=== PATIENT | female | born 1935 | race Caucasian/White ===

== ENCOUNTER 2017-04-26 13:44 | Emergency (ER) | payer MEDICARE ==
[~2017-04-26] VITALS: Ht 172.7 cm; Wt 102.7 kg
[2017-04-26] MEDS ORDERED: METF500T4 PO (13:55)
[2017-04-26] MEDS ORDERED: CARI350 PO (13:55)
[2017-04-26] MEDS ORDERED: LEVO25TA4 PO (13:55)
[2017-04-26] MEDS ORDERED: LISI-660 PO (13:55)
[2017-04-26] MEDS ORDERED: ATOR10TA84 PO (13:55)
[2017-04-26 14:02] LABS: GLUCOSE,POINT OF CARE 155 MG/DL (70-110)
[2017-04-26] MEDS ORDERED: ONDANSETRON HCL 4 MG TABLET PO ONE (15:00)
[2017-04-26] MEDS ORDERED: HYDROmorphone 2 MG/ML SYRINGE IM ONE (15:00)
[2017-04-26 15:30] VITALS: BP 135/86
== END 2017-04-26 15:50 | disposition home or self-care (01) ==
LOC: EMS 13:47
DX: M54.41 Lumbago with sciatica, right side (principal); M79.604 Pain in right leg; E11.9 Type 2 diabetes mellitus without complications; E78.00 Pure hypercholesterolemia, unspecified; I10 Essential (primary) hypertension; E03.9 Hypothyroidism, unspecified; Z88.5 Allergy status to narcotic agent
CPT/HCPCS: 82962; 96372; 99283; J1170; Q0162